=== PATIENT | female | born 1960 | race Caucasian/White ===

== ENCOUNTER 2021-11-27 14:07 | Observation (INO) ==
[2021-11-27] MEDS ORDERED: Aspirin 81 MG TAB.CHEW PO STA (14:52)
[2021-11-27] MEDS: Nitroglycerin 0.4 MG TAB.SUBL SL SCH ×2 (14:58→17:02)
[2021-11-27 15:07] LABS: Basophils % 0.2 %; Eosinophils # 0.1 K/mcL (0.0-0.6); Eosinophils % 1.9 %; Hematocrit 36.4 % (35.3-44.9); Hemoglobin 11.6 g/dL (11.5-15.4); Immature Granulocytes % 0.5 % (0-4); Lymphocytes # 1.2 K/mcL (0.6-4.6); Lymphocytes % 28.8 %; Mean Corpuscular HGB Conc 31.9 g/dL (31.6-35.5); Mean Corpuscular Hemoglobin 27.3 pg (28.0-33.3); Mean Corpuscular Volume 85.6 fL (83.0-100.0); Mean Platelet Volume 9.9 fL (9.4-12.4); Monocytes # 0.4 K/mcL (0.0-1.3); Monocytes % 9.7 %; Neutrophils # 2.5 K/mcL (1.6-8.9); Platelet Count 129 K/mcL (140-400); Red Blood Count 4.25 M/mcL (3.82-4.97); Red Cell Distribution Width 13.2 % (11.5-14.5); Segmented Neutrophils % 58.9 %; White Blood Count 4.3 K/mcL (4.3-11.1)
[2021-11-27 15:19] LABS: INR 1.2; Prothrombin Time 13.8 Seconds (9.4-12.1)
[2021-11-27 15:21] LABS: Activated Partial Thrombo Time 37.9 Seconds (26.0-36.0)
[2021-11-27 15:38] LABS: Alanine Aminotransferase 12 Units/L (7-52); Albumin 3.9 g/dL (3.5-5.7); Albumin/Globulin Ratio 1.3 (1.1-2.2); Alkaline Phosphatase 104 Units/L (34-104); Aspartate Amino Transferase 17 Units/L (13-39); BUN/Creatinine Ratio 17 (6-26); Bilirubin,Direct 0.1 mg/dL (0.0-0.2); Bilirubin,Indirect 0.2 mg/dL (0.0-1.0); Bilirubin,Total 0.3 mg/dL (0.3-1.0); Blood Urea Nitrogen 12 mg/dL (6-20); Calcium 9.1 mg/dL (8.6-10.3); Carbon Dioxide 23 mEq/L (23-29); Chloride 103 mEq/L (98-107); Globulin 2.9 g/dL (2.4-3.5); Glucose 381 mg/dL (70-105); Lipase 18 Units/L (11-82); Osmolality,Calculated 293 (280-300); Potassium 4.8 mEq/L (3.5-5.1); Sodium 134 mEq/L (136-145); Total Protein 6.8 g/dL (6.4-8.9); Troponin I < 0.03 ng/mL (< 0.04)
[2021-11-27] MEDS ORDERED: Ondansetron 4 MG/2 ML VIAL IVP PRN (16:46)
[2021-11-27] MEDS ORDERED: Acetaminophen 325 MG TABLET PO PRN (16:46)
[2021-11-27] MEDS ORDERED: Naloxone 0.4 MG/ML INJ IVP PRN (16:46)
[2021-11-27] MEDS ORDERED: Nitroglycerin 0.4 MG TAB.SUBL SL PRN (17:04)
[2021-11-27] MEDS ORDERED: ALPRAZolam 0.5 MG TABLET PO PRN (17:05)
[2021-11-27] MEDS ORDERED: Dextrose Gel 15 GM/37.5 ML TUBE PO PRN ×2 (17:11)
[2021-11-27] MEDS ORDERED: D5% in Water 1,000 ML IVC PRN (17:11)
[2021-11-27] MEDS ORDERED: *HR* Dextrose 50 % in Water (Syg) 50 ML SYRINGE IVP PRN (17:11)
[2021-11-27] MEDS: Insulin LISPRO 300 UNITS/3 ML VIAL SUBQ SCH ×2 (17:46→20:25)
[2021-11-27] MEDS: Gabapentin 300 MG CAPSULE PO SCH (20:34)
[2021-11-27] MEDS: traZODone 50 MG TABLET PO SCH (20:34)
[2021-11-27] MEDS: *HR* Heparin 5,000 UNIT/ML VIAL SQ SCH (20:34)
[2021-11-28 02:28] LABS: Basophils % 0.8 %; Eosinophils # 0.1 K/mcL (0.0-0.6); Eosinophils % 2.5 %; Hematocrit 32.8 % (35.3-44.9); Hemoglobin 10.5 g/dL (11.5-15.4); Lymphocytes # 1.4 K/mcL (0.6-4.6); Lymphocytes % 38.3 %; Mean Corpuscular Hemoglobin 27.5 pg (28.0-33.3); Mean Corpuscular Volume 85.9 fL (83.0-100.0); Mean Platelet Volume 10.2 fL (9.4-12.4); Monocytes # 0.5 K/mcL (0.0-1.3); Monocytes % 13.3 %; Neutrophils # 1.6 K/mcL (1.6-8.9); Platelet Count 108 K/mcL (140-400); Red Blood Count 3.82 M/mcL (3.82-4.97); Red Cell Distribution Width 13.5 % (11.5-14.5); Segmented Neutrophils % 45.1 %; White Blood Count 3.6 K/mcL (4.3-11.1)
[2021-11-28 02:39] LABS: BUN/Creatinine Ratio 17 (6-26); Blood Urea Nitrogen 10 mg/dL (6-20); Calcium 9.2 mg/dL (8.6-10.3); Carbon Dioxide 26 mEq/L (23-29); Chloride 106 mEq/L (98-107); Glucose 254 mg/dL (70-105); Magnesium 1.2 mg/dL (1.6-2.6); Osmolality,Calculated 290 (280-300); Potassium 4.4 mEq/L (3.5-5.1); Sodium 136 mEq/L (136-145)
[2021-11-28] MEDS: *HR* Heparin 5,000 UNIT/ML VIAL SQ SCH ×3 (06:11→21:07)
[2021-11-28] MEDS: Gabapentin 300 MG CAPSULE PO SCH ×3 (08:14→21:06)
[2021-11-28] MEDS: lamoTRIgine 100 MG TABLET PO SCH (08:14)
[2021-11-28] MEDS: Aspirin Enteric Coated 81 MG Tablet PO SCH (08:14)
[2021-11-28] MEDS: Insulin LISPRO 300 UNITS/3 ML VIAL SUBQ SCH ×4 (08:27→21:07)
[2021-11-28 08:32] LABS: Troponin I < 0.03 ng/mL (< 0.04)
[2021-11-28] MEDS ORDERED: Heparin 1,000 UNITS/500 mL 500 ML ONE (10:06)
[2021-11-28] MEDS ORDERED: Nitroglycerin 1,000 MCG/5 ML VIAL IV ONE (10:06)
[2021-11-28] MEDS ORDERED: *HR* Heparin 10,000 UNIT/10 ML VIAL ONE (10:06)
[2021-11-28] MEDS ORDERED: Iopamidol - 370 200 ML INFUS..BTL ONE (10:06)
[2021-11-28] MEDS ORDERED: 0.9 % Sodium Chloride 2,000 ML ONE (10:06)
[2021-11-28] MEDS ORDERED: *HR* Midazolam HCl 2 MG/2 ML VIAL ONE (10:29)
[2021-11-28] MEDS ORDERED: *HR* FentaNYL (PF) 100 MCG/2 ML VIAL ONE (10:29)
[2021-11-28] MEDS: Metoprolol XL (24 HR) Succ 25 MG TAB.ER.24H PO SCH (10:47)
[2021-11-28] MEDS ORDERED: ALPRAZolam 1 MG TABLET PO PRN (13:07)
[2021-11-28] MEDS ORDERED: tiZANidine 4 MG TABLET PO PRN (13:07)
[2021-11-28] MEDS ORDERED: risperiDONE 1 MG TABLET PO SCH (21:00)
[2021-11-28] MEDS: Famotidine 20 MG TABLET PO SCH (21:06)
[2021-11-28] MEDS: Baclofen 10 MG TABLET PO SCH (21:07)
[2021-11-28] MEDS: traZODone 50 MG TABLET PO SCH (22:57)
[2021-11-28 23:23] VITALS: TEMP 97.8
[2021-11-29] MEDS: *HR* Heparin 5,000 UNIT/ML VIAL SQ SCH (05:14)
[2021-11-29 05:15] LABS: Basophils % 0.6 %; Eosinophils # 0.1 K/mcL (0.0-0.6); Eosinophils % 1.8 %; Hematocrit 32.6 % (35.3-44.9); Hemoglobin 10.7 g/dL (11.5-15.4); Immature Granulocytes % 0.3 % (0-4); Lymphocytes # 1.1 K/mcL (0.6-4.6); Lymphocytes % 33.8 %; Mean Corpuscular HGB Conc 32.8 g/dL (31.6-35.5); Mean Corpuscular Hemoglobin 27.6 pg (28.0-33.3); Mean Platelet Volume 9.8 fL (9.4-12.4); Monocytes # 0.4 K/mcL (0.0-1.3); Monocytes % 12.3 %; Neutrophils # 1.7 K/mcL (1.6-8.9); Platelet Count 110 K/mcL (140-400); Red Blood Count 3.88 M/mcL (3.82-4.97); Red Cell Distribution Width 13.2 % (11.5-14.5); Segmented Neutrophils % 51.2 %; White Blood Count 3.3 K/mcL (4.3-11.1)
[2021-11-29 05:33] LABS: Calcium 9.6 mg/dL (8.6-10.3); Potassium 4.3 mEq/L (3.5-5.1)
[2021-11-29 07:53] VITALS: BP 107/72; PULSE 98; O2SAT 99
[2021-11-29] MEDS: Insulin LISPRO 300 UNITS/3 ML VIAL SUBQ SCH (07:54)
[2021-11-29] MEDS: Famotidine 20 MG TABLET PO SCH (07:55)
[2021-11-29] MEDS: Aspirin Enteric Coated 81 MG Tablet PO SCH (07:55)
[2021-11-29] MEDS: Baclofen 10 MG TABLET PO SCH (07:56)
[2021-11-29] MEDS: Gabapentin 300 MG CAPSULE PO SCH (07:56)
[2021-11-29] MEDS: lamoTRIgine 100 MG TABLET PO SCH (07:56)
[2021-11-29] MEDS ORDERED: Isosorbide MONOnitrate (24 HR) 30 MG TAB.ER.24H PO SCH (09:00)
[2021-11-29] MEDS ORDERED: BuPROPion XL (24 HR) 150 MG TABLET PO SCH (09:00)
[2021-11-29] MEDS: Metoprolol XL (24 HR) Succ 25 MG TAB.ER.24H PO SCH (09:05)
== END 2021-11-29 09:22 | disposition home or self-care (01) ==
LOC: 3BNU 14:07 → EMEROOARM 14:07 → SUATTDRO 16:46 → 3BNU 17:20
PROVIDERS: ADMIT Internal Medicine; ATTEND Internal Medicine

== ENCOUNTER 2021-12-24 07:42 | Observation (INO) ==
[2021-12-24 08:53] LABS: Bilirubin,Urine Negative (Negative); Blood,Urine Negative (Negative); Clarity,Urine Clear (Clear); Color,Urine Light-Yellow (Yellow); Glucose,Urine (UA) 300 mg/dL (Normal); Ketones,Urine Negative (Negative); Leukocyte Esterase,Urine Moderate (Negative); Nitrite,Urine Negative (Negative); PH,Urine 6.5 pH Units (5.0-8.0); Protein,Urine Trace mg/dL (Neg-Trace); RBC,Urine 0-3 per hpf (0-3); Specific Gravity,Urine 1.009 (1.010-1.025); Squamous Epithelial Cell,Urine Few per hpf (None-Few); Urobilinogen,Urine Normal (Normal); WBC,Urine TNTC per hpf (0-3)
[2021-12-24 08:55] LABS: Basophils % 0.4 %; Eosinophils % 0.7 %; Hematocrit 37.5 % (35.3-44.9); Hemoglobin 12.3 g/dL (11.5-15.4); Immature Granulocytes % 0.2 % (0-4); Lymphocytes % 21.5 %; Mean Corpuscular HGB Conc 32.8 g/dL (31.6-35.5); Mean Corpuscular Volume 85.2 fL (83.0-100.0); Monocytes # 0.4 K/mcL (0.0-1.3); Monocytes % 7.7 %; Neutrophils # 3.2 K/mcL (1.6-8.9); Platelet Count 171 K/mcL (140-400); Red Cell Distribution Width 13.7 % (11.5-14.5); Segmented Neutrophils % 69.5 %; White Blood Count 4.6 K/mcL (4.3-11.1)
[2021-12-24 09:25] LABS: Alanine Aminotransferase 7 Units/L (7-52); Albumin 4.1 g/dL (3.5-5.7); Albumin/Globulin Ratio 1.3 (1.1-2.2); Alkaline Phosphatase 220 Units/L (34-104); Amylase < 10 Units/L (29-103); Aspartate Amino Transferase 12 Units/L (13-39); BUN/Creatinine Ratio 19 (6-26); Bilirubin,Direct 0.1 mg/dL (0.0-0.2); Bilirubin,Indirect 0.3 mg/dL (0.0-1.0); Bilirubin,Total 0.4 mg/dL (0.3-1.0); Blood Urea Nitrogen 11 mg/dL (6-20); Calcium 9.9 mg/dL (8.6-10.3); Carbon Dioxide 24 mEq/L (23-29); Chloride 105 mEq/L (98-107); Globulin 3.1 g/dL (2.4-3.5); Glucose 228 mg/dL (70-105); Lipase 13 Units/L (11-82); Osmolality,Calculated 291 (280-300); Potassium 4.4 mEq/L (3.5-5.1); Sodium 137 mEq/L (136-145); Total Protein 7.2 g/dL (6.4-8.9)
[2021-12-24] MEDS: 0.9 % Sodium Chloride 1,000 ML IVC SCH ×2 (10:13→12:52)
[2021-12-24] MEDS ORDERED: cefTRIAXone 2,000 MG in 0.9 % Sodium Chloride Mini Bag 100 ML IVPB STA ×3 (11:41→12:11)
[2021-12-24] MEDS ORDERED: Melatonin 3 MG TABLET PO PRN (13:08)
[2021-12-24] MEDS ORDERED: Ondansetron 4 MG/2 ML VIAL IVP PRN (13:08)
[2021-12-24] MEDS ORDERED: Naloxone 0.4 MG/ML INJ IVP PRN (13:08)
[2021-12-24] MEDS ORDERED: Acetaminophen 325 MG TABLET PO PRN (13:08)
[2021-12-24] MEDS ORDERED: ALPRAZolam 1 MG TABLET PO PRN (13:14)
[2021-12-24] MEDS ORDERED: tiZANidine 4 MG TABLET PO PRN (13:14)
[2021-12-24] MEDS: Gabapentin 300 MG CAPSULE PO SCH ×2 (15:33→21:00)
[2021-12-24] MEDS: *HR* HYDROcodone/Acet 5/325 mg TABLET PO PRN ×2 (18:16→23:41)
[2021-12-24] MEDS ORDERED: risperiDONE 1 MG TABLET PO SCH (21:00)
[2021-12-24] MEDS: Famotidine 20 MG TABLET PO SCH (21:00)
[2021-12-24] MEDS: Baclofen 10 MG TABLET PO SCH (21:00)
[2021-12-24] MEDS ORDERED: traZODone 50 MG TABLET PO SCH (21:00)
[2021-12-25 03:11] LABS: Hematocrit 34.3 % (35.3-44.9); Hemoglobin 10.8 g/dL (11.5-15.4); Mean Corpuscular HGB Conc 31.5 g/dL (31.6-35.5); Mean Corpuscular Hemoglobin 27.2 pg (28.0-33.3); Mean Corpuscular Volume 86.4 fL (83.0-100.0); Mean Platelet Volume 9.1 fL (9.4-12.4); Platelet Count 162 K/mcL (140-400); Red Blood Count 3.97 M/mcL (3.82-4.97); Red Cell Distribution Width 13.8 % (11.5-14.5); White Blood Count 3.1 K/mcL (4.3-11.1)
[2021-12-25 03:24] LABS: INR 1.2
[2021-12-25 03:36] LABS: Albumin 3.5 g/dL (3.5-5.7); Albumin/Globulin Ratio 1.3 (1.1-2.2); Bilirubin,Direct 0.1 mg/dL (0.0-0.2); Bilirubin,Indirect 0.2 mg/dL (0.0-1.0); Bilirubin,Total 0.3 mg/dL (0.3-1.0); Globulin 2.7 g/dL (2.4-3.5); Magnesium 1.3 mg/dL (1.6-2.6); Phosphorous 3.6 mg/dL (2.7-4.5); Total Protein 6.2 g/dL (6.4-8.9)
[2021-12-25] MEDS: Baclofen 10 MG TABLET PO SCH (07:45)
[2021-12-25] MEDS: Famotidine 20 MG TABLET PO SCH (07:45)
[2021-12-25] MEDS: Gabapentin 300 MG CAPSULE PO SCH (07:47)
[2021-12-25] MEDS ORDERED: Magnesium Oxide 400 MG TABLET PO ONE (07:52)
[2021-12-25] MEDS ORDERED: Metoprolol XL (24 HR) Succ 25 MG TAB.ER.24H PO SCH (09:00)
[2021-12-25] MEDS ORDERED: cefTRIAXone 2,000 MG in 0.9 % Sodium Chloride 20 ML IVP SCH (09:00)
[2021-12-25] MEDS ORDERED: Isosorbide MONOnitrate (24 HR) 30 MG TAB.ER.24H PO SCH (09:00)
[2021-12-25] MEDS ORDERED: lamoTRIgine 100 MG TABLET PO SCH (09:00)
[2021-12-25] MEDS ORDERED: Aspirin Enteric Coated 81 MG Tablet PO SCH (09:00)
[2021-12-25] MEDS ORDERED: BuPROPion XL (24 HR) 150 MG TABLET PO SCH (09:00)
[2021-12-25 11:33] VITALS: BP 113/75; PULSE 82; TEMP 98; O2SAT 98
== END 2021-12-25 11:51 | disposition home or self-care (01) ==
LOC: EMEROOARM 07:42 → 3BNU 07:42 → SUATTDRO 12:45 → 3BNU 15:43
PROVIDERS: ADMIT Internal Medicine; ATTEND Internal Medicine